=== PATIENT | female | born 1930 | race Caucasian/White ===

== ENCOUNTER 2017-09-11 09:53 | Inpatient (IN) | payer MEDICARE ==
[2017-09-11] MEDS ORDERED: Norepinephrine 8 MG/0.9% NS 250 ML ONE (10:20)
[2017-09-11 10:34] LABS: #Lymphocytes 4.4 thou/uL (1.20-3.40); #Neutrophils 9.3 thou/uL (1.40-6.50); %Basophils 0.3 % (0.0-1.0); %Eosinophils 1.7 % (0.0-10.0); %Lymphocytes 30.4 % (21.0-51.0); %Monocytes 4.2 % (0.0-10.0); Hematocrit 38.7 % (36.0-47.0); Mean Platelet Volume 9.2 fL (7.4-10.4); Red Blood Cell (RBC) Count 4.17 mill/uL (4.20-5.40); White Blood Cell (WBC) Count 14.6 thou/uL (4.8-10.8)
[2017-09-11 10:35] LABS: #Basophils 0.1 thou/uL (0.0-0.2); #Eosinphils 0.3 thou/uL (0.0-0.7); #Monocytes 0.6 thou/uL (0.11-0.59)
[2017-09-11 10:36] LABS: Oxyhemoglobin 97.3 % (94.0-97.0); Sodium 154 mmol/L (135-148)
[2017-09-11 10:37] LABS: Mechanical Tidal Volume 500 ml; Mode SIMV/PSV; PIP 14 cmH2O; Pressure Support 10 cmH2O; Vent YES
[2017-09-11 10:43] LABS: PTT 51.5 SEC (22.9-36.1)
[2017-09-11 11:00] LABS: ALT (SGPT) 115 U/L (8-55); Alkaline Phosphatase 85 U/L (40-150); Anion Gap 24 mmol/L (10-20); BUN (Urea Nitrogen) 23 mg/dL (9.8-20.1); Bilirubin, Total 0.5 mg/dL (0.2-1.2); Calc. Creatinine Clearance 0 mL/min (70-130); Calcium 7.9 mg/dL (7.8-10.44); Carbon Dioxide 12 mmol/L (23-31); Chloride 117 mmol/L (98-107); Estimated GFR-MDRD 34
[2017-09-11 11:02] LABS: AST (SGOT) 171 U/L (5-34); Protein, Total 5.2 g/dL (6.0-8.3)
--- NOTE | 2017-09-11 11:02 | RAD ---
PORTABLE SUPINE FRONTAL CHEST RADIOGRAPH; Date: 09/11/17 COMPARISON: None. HISTORY: Emergency examination. FINDINGS: There is an endotracheal tube projecting over the tracheal air column, terminating at the level of th e clavicular heads. There is a nasogastric tube present, its distal tip terminating just beyond the expected location of the gastroesophageal junction, the side port overlying the expected location of the distal esophagus. The nasogastric tube should be advanced. There is a paddle overlying the right hemithorax, which limits assessment. There is a right-sided vas cular catheter, distal tip overlying the region of the right atrium. There is dense opacity in the left lung base suggesting left pleural fluid and left lower lobe consol idation/collapse. Supine imaging limits assessment for pleural fluid, pneumothorax, and free intraper itoneal air. IMPRESSION: Lines and tubes as above. Dense opacity in the left base suggests a combination of nonspecific left l ower lobe consolidation/collapse and left pleural fluid. POS: [facility]
[2017-09-11 11:10] LABS: Oxyhemoglobin 97.3 % (94.0-97.0); Sodium 149 mmol/L (135-148)
[2017-09-11 11:12] LABS: Mode BAGGING
[2017-09-11] MEDS ORDERED: CCU Electrolyte Replacement 1 EACH FS ONE (11:40)
[2017-09-11] MEDS ORDERED: Norepinephrine 8 MG/0.9% NS 250 ML IVPB SCH (11:40)
[2017-09-11] MEDS ORDERED: Acetaminophen 650 MG Suppository PR PRN (11:40)
[2017-09-11] MEDS ORDERED: Sodium Chloride 0.9% 1,000 ML IV SCH (11:40)
[2017-09-11] MEDS ORDERED: Ondansetron HCl/PF 4 MG/2 ML Vial IVP PRN (11:40)
[2017-09-11] MEDS ORDERED: Piperacillin/Tazobactam 4.5 GM in Sodium Chloride 0.9% 100 ML IVPB SCH (12:00)
--- NOTE | 2017-09-11 12:10 | HP ---
PRIMARY CARE PROVIDER: Unknown. HISTORY OF PRESENT ILLNESS: Patient with frequent UTIs, history of renal stones, history of renal st one open surgery in the last year, had a fall yesterday, was seen at the [facility] ER and sent home. Today , she had abnormal mental status, was brought into the emergency room. She proceeded to have cardiop ulmonary arrest. After prolonged resuscitation, she developed a rhythm. She went into an [facility] disassociation 3 more times while in the emergency department with CPR after each. She is currently intubated, unresponsive. Blood pressure about 70-90 systolic. Pulse about 70-90. I had a long discussion with the family. They originally wanted everything done; after multiple resuscitati ons, they have agreed to no more resuscitations. She is being moved to the Intensive Care Unit with diagnosis of septic shock and status post cardiopulmonary arrest. PAST MEDICAL HISTORY: Diabetes and renal stones and frequent UTIs. Pacemaker for unknown reason. CURRENT MEDICATIONS: The family does not know her medications; does not have them with her. ALLERGIES: CEFTRIAXONE and SULFA. PAST SURGICAL HISTORY: Renal stone surgery on the left side. FAMILY HISTORY: Not obtained due to patient's unresponsive state. SOCIAL HISTORY: , no tobacco, no alcohol. REVIEW OF SYSTEMS: Other than present illness, unobtainable due to this patient's current mental sta tus. PHYSICAL EXAMINATION: VITAL SIGNS: Blood pressure currently running 70-90 systolic on pressors, pulse 70-90 with frequent PVCs, intubated, no spontaneous respirations. HEENT: Examination of her head, eyes, ears, nose, and throat reveal pupils to be small and fixed. N egative doll's eyes. Sclerae white. Tympanic membranes are clear. Nose clear. Oral mucous membran es are dry. Dental hygiene is adequate. NECK: No jugular venous distention, adenopathy, or thyromegaly. CHEST: Grossly clear to auscultation and percussion. Difficult exam. HEART: Regular rate and rhythm with frequent irregular beats. No murmurs or gallops appreciated. ABDOMEN: Soft, bowel sounds are very quiet, no mass, no bruit, no hepatosplenomegaly. EXTREMITIES: Reveal no edema. She has got peripheral cyanosis in her hands and feet. PULSES: Carotid, radial, and pedal pulses are markedly diminished. Femoral pulses are palpable. SKIN: Mottled and dry. NEUROLOGICAL: Facies grossly symmetric. Negative doll's eyes. Deep tendon reflexes are areflexic. Plantar response neutral. X-RAY FINDINGS: Chest x-ray reveals possible left lower lobe collapse, consolidation. No cardiomega ly, no obvious CHF or infiltrate. Pacemaker in left upper chest. LABORATORY DATA: Sodium 148, potassium 5.3, chloride 117, CO2 of 12, BUN 23, creatinine 1.46, blood sugar 274. AST and ALT 171 and 115. Initial arterial blood gas, pH 7.37 post-resuscitation 6.99. I nitial, CO2 of 25.5 and followup 21.0. INR is 4.0. White count 14.6, hemoglobin 12.1, platelet coun t 157,000. ADMITTING DIAGNOSES: 1. Septic shock syndrome, probably related to bacterial infection. 2. Cardiopulmonary arrest, post-resuscitation multiple times in the emergency department. 3. Acute kidney injury. 4. Hypernatremia. 5. Diabetes mellitus, type 2. 6. Pacemaker. 7. Coagulopathy, etiology unknown. 8. Hyperkalemia. 9. Hyperglycemia. PLAN: 1. Moved to ICU. 2. Critical Care consult. 3. Mechanical ventilation. 4. IV fluids. 5. Pressors. 6. IV antibiotics to include Zosyn, Levaquin, and vancomycin. 7. Serial laboratory including q.6 hour basic metabolic profile next 24 hours. 8. Blood and urine cultures have been obtained. 9. Accu-Cheks, IV insulin, most likely in this situation. Prognosis is grave. I have discussed with the family that I do not believe this lady will survive . She will require aggressive monitoring, frequent reevaluations. One hour critical care time spent in the emergency department stabilizing this patient as much as she can be considered stable a t this time.
[2017-09-11 12:17] LABS: Lactic Acid - Sepsis 13.7 mmol/L (0.5-2.2)
[2017-09-11 13:58] VITALS: BP 73/31
--- NOTE | 2017-09-11 16:58 | DS ---
PRIMARY CARE PROVIDER: Nithin Kumar M.D. DATE OF ADMISSION: 09/11/2017 DATE OF : 09/11/2017 Body released to home. FINAL DIAGNOSES: Septic shock, cardiopulmonary arrest, acute kidney injury, metabolic acidosis, diab etes mellitus type 2, pacemaker. HOSPITAL COURSE: Sound service was called to the ER post-CPR on Maryam Alvarado. She had come to [facility] ER with family with a mental status change and had undergone cardiopulmonary arrest in the ER. Dr. Yung had successfully resuscitated. When I got here, she went into electrical mechanical dissoci ation. We resumed CPR. I discussed the situation with the family and Dr. Yung. In the emergency room, we got a rhythm back and some blood pressure on the patient 3 times. She was moved to the cri tical care unit. I had obtained a DNR for any further resuscitation. After she had last rites by a yardage estimator, almost immediately after this happened, she underwent another cardiopulmonary arrest and was pronounced . PROCEDURES: Included mechanical intubation by Dr. Yung in the emergency room, multiple episodes o f cardiopulmonary resuscitation.
[2017-09-11] MEDS ORDERED: Vancomycin HCl 1 GM in Sodium Chloride 0.9% 250 ML 250 ML IVPB SCH (21:00)
[2017-09-12] MEDS ORDERED: Enoxaparin Sodium 40 MG/0.4 ML SYRINGE SC SCH (09:00)
== END 2017-09-11 12:59 | disposition expired | DRG 871 ==
LOC: ERS 09:53 → CCU 10:50
PROVIDERS: ADMIT Internal Medicine; ATTEND Internal Medicine
PROC: 0BH17EZ Insertion of Endotracheal Airway into Trachea, Via Natural or Artificial Opening (ICD-10-PCS; principal; 2017-09-11)
PROC: 5A1935Z Respiratory Ventilation, Less than 24 Consecutive Hours (ICD-10-PCS; 2017-09-11)
PROC: 5A12012 Performance of Cardiac Output, Single, Manual (ICD-10-PCS; 2017-09-11)
PROC: 5A2204Z Restoration of Cardiac Rhythm, Single (ICD-10-PCS; 2017-09-11)
PROC: 02H633Z Insertion of Infusion Device into Right Atrium, Percutaneous Approach (ICD-10-PCS; 2017-09-11)
DX: A41.9 Sepsis, unspecified organism (principal); R65.21 Severe sepsis with septic shock; J96.90 Respiratory failure, unspecified, unspecified whether with hypoxia or hypercapnia; I46.9 Cardiac arrest, cause unspecified; N17.9 Acute kidney failure, unspecified; E87.2 Acidosis; D68.9 Coagulation defect, unspecified; E87.0 Hyperosmolality and hypernatremia; E11.65 Type 2 diabetes mellitus with hyperglycemia; Z95.0 Presence of cardiac pacemaker; Z66 Do not resuscitate; E87.5 Hyperkalemia; Z87.442 Personal history of urinary calculi; Z87.440 Personal history of urinary (tract) infections; Z88.1 Allergy status to other antibiotic agents; Z88.2 Allergy status to sulfonamides
CPT/HCPCS: 31500; 36556; 36680; 71010; 80053; 82805; 83605; 85025; 85610; 85730; 87040; 92950; 94002; 96365; 96375; 96376; 99292; J1956